=== PATIENT | male | born 1995 | race Two or more races ===

== ENCOUNTER 2018-05-20 12:03 | Emergency (ER) | payer MEDICAID ==
[~2018-05-20] VITALS: Ht 182.9 cm; Wt 84.8 kg
[2018-05-20 12:06] VITALS: Ht 182.9 cm; Wt 84.8 kg
[2018-05-20 14:00] VITALS: BP 139/90
== END 2018-05-20 14:00 | disposition home or self-care (01) ==
LOC: ED 12:03
DX: S61.216A Laceration without foreign body of right little finger without damage to nail, initial encounter (principal); W54.0XXA Bitten by dog, initial encounter; Y93.89 Activity, other specified; Y92.89 Other specified places as the place of occurrence of the external cause; Y99.8 Other external cause status
CPT/HCPCS: 90715

== ENCOUNTER 2018-05-22 15:33 | Emergency (ER) | payer MEDICAID ==
[~2018-05-22] VITALS: Ht 182.9 cm; Wt 84.9 kg
[2018-05-22 15:50] VITALS: Ht 182.9 cm; Wt 84.9 kg
[2018-05-22 17:13] VITALS: BP 132/71
== END 2018-05-22 17:13 | disposition home or self-care (01) ==
LOC: ED 15:33
DX: Z48.01 Encounter for change or removal of surgical wound dressing (principal)